=== PATIENT | male | born 1955 | race Caucasian/White ===

== ENCOUNTER 2024-10-21 06:28 | Day surgery (SDC) | payer MEDICARE ==
[2024-10-21] MEDS ORDERED: Propofol 200 MG/20 ML SDV ONE ×2 (06:55→08:03)
[2024-10-21] MEDS ORDERED: Midazolam 1 MG/ML 2 ML SDV ONE (06:55)
[2024-10-21] MEDS ORDERED: fentaNYL 100 MCG/2 ML SDV ONE (06:55)
[2024-10-21] MEDS: Lactated Ringers 1,000 ML IV SCH (07:08)
== END 2024-10-21 09:15 | disposition home or self-care (01) ==
LOC: JP.SDS 06:28
PROVIDERS: ATTEND Surgery
DX: Z12.11 Encounter for screening for malignant neoplasm of colon (principal); D12.3 Benign neoplasm of transverse colon; D12.5 Benign neoplasm of sigmoid colon; K57.30 Diverticulosis of large intestine without perforation or abscess without bleeding
CPT/HCPCS: 00811; 45385; J2250; J2704; J3010; J7120; 88305